=== PATIENT | male | born 1985 | race American Indian/Alaskan Native ===

== ENCOUNTER 2020-06-03 11:01 | Emergency (ER) | payer SELFPAY ==
[2020-06-03 11:14] VITALS: BP 124/60
== END 2020-06-03 14:01 ==
LOC: ED 11:01
DX: J02.9 Acute pharyngitis, unspecified (principal); Z53.21 Procedure and treatment not carried out due to patient leaving prior to being seen by health care provider

== ENCOUNTER 2021-05-09 08:12 | Emergency (ER) | payer SELFPAY ==
[2021-05-09] MEDS ORDERED: MORPHINE 4 MG/1 ML INJ IM ONE (08:51)
[2021-05-09] MEDS ORDERED: KETOROLAC 30 MG/1 ML INJ IM ONE (08:51)
[2021-05-09 09:06] LABS: Hemoglobin 13.3 gm/dl (11.8-15.2); Mean Corpuscular HGB Conc 33 % (32-34); Mean Corpuscular Volume 81 fl (84-94); Platelet Count 205 K/mm3 (140-440); Red Blood Count 5.07 M/mm3 (3.65-5.03); Red Cell Distribution Width 15.9 % (13.2-15.2)
[2021-05-09 09:28] LABS: Alanine Aminotransferase 23 units/L (7-56); Albumin 4.7 g/dL (3.9-5); BUN/Creatinine Ratio 13; Blood Urea Nitrogen 10 mg/dL (9-20); Calcium 9.5 mg/dL (8.4-10.2); Hemolysis Index 18
[2021-05-09 09:32] LABS: Bilirubin,Urine NEG (Negative); Blood,Urine SM (Negative); Color,Urine Straw (Yellow); Protein,Urine <15 mg/dL mg/dL (Negative); Urobilinogen,Urine < 2.0 mg/dL (<2.0)
[2021-05-09 09:57] VITALS: BP 104/74
--- NOTE | 2021-05-09 10:01 | Emergency Department Report ---
ED Male HPI - General Chief complaint: Abdominal Pain Stated complaint: SEVERE ABD/LOWER BACK PAIN Time Seen by Provider: 05/09/21 08:34 Source: patient Mode of arrival: Ambulatory Limitations: No Limitations - History of Present Illness Initial comments: 35-year-old -[place] male with a history of HIV presents to the emergency room complaining of severe left flank pain that travels to the left lower quadrant abdomen. Patient states this started about 6 PM last night and has gradually gotten worse. Patient states he thought it was gas late on the floor but is not able to cut get comfortable. He denies any nausea no vomiting no hematuria no diarrhea. States is compliant with his medications. It is undetectable. He denies any fever chills. -: Last night Location: left flank Radiation: throat Severity scale (0 -10): 10 Quality: sharp, stabbing Consistency: constant Improves with: none Worsens with: none denies other symptoms. denies: nausea/vomiting - Related Data Sexually active: Yes Previous Rx's Medication Instructions Recorded Last Taken Type Ibuprofen [Motrin 800 MG tab] 800 mg PO Q8HR PRN #30 tablet 05/09/21 Unknown Rx Allergies Allergy/AdvReac Type Severity Reaction Status Date / Time No Known Allergies Allergy Unverified 05/09/21 08:27 ED Review of Systems ROS: Stated complaint: SEVERE ABD/LOWER BACK PAIN Other details as noted in HPI Comment: All other systems reviewed and negative ED Past Medical Hx - Past Medical History Previous Medical History?: No - Surgical History Past Surgical History?: No Hx Appendectomy: Yes - Social History Smoking Status: Current Every Day Smoker Substance Use Type: None - Medications Home Medications: Home Medications Medication Instructions Recorded Confirmed Last Taken Type Ibuprofen [Motrin 800 MG tab] 800 mg PO Q8HR PRN #30 tablet 05/09/21 Unknown Rx ED Physical Exam - General Limitations: No Limitations General appearance: alert, in distress - Head Head exam: Present: atraumatic, normocephalic - Eye Eye exam: Present: normal appearance - ENT ENT exam: Present: mucous membranes moist - Neck Neck exam: Present: normal inspection - Respiratory Respiratory exam: Present: normal lung sounds bilaterally. Absent: respiratory distress - Cardiovascular Cardiovascular Exam: Present: regular rate - GI/Abdominal GI/Abdominal exam: Present: distended, tenderness, guarding, normal bowel sounds - Extremities Exam Extremities exam: Present: normal inspection, full ROM - Back Exam Back exam: Present: normal inspection - Neurological Exam Neurological exam: Present: alert, oriented X3 - Psychiatric Psychiatric exam: Present: normal affect, normal mood - Skin Skin exam: Present: warm, dry, intact, normal color. Absent: rash ED Course Vital Signs 05/09/21 08:27 Temperature 98.3 F Pulse Rate 84 Respiratory 18 Rate Blood Pressure 104/74 O2 Sat by Pulse 99 Oximetry ED Medical Decision Making - Lab Data Result diagrams: 05/09/21 08:54 05/09/21 08:54 - Medical Decision Making 35-year-old -[place] male with a history of HIV presents to the emergency room complaining of severe left flank pain that travels to the left lower quadrant abdomen. Patient states this started about 6 PM last night and has gradually gotten worse. Patient states he thought it was gas late on the floor but is not able to cut get comfortable. He denies any nausea no vomiting no hematuria no diarrhea. States is compliant with his medications. It is undetectable. He denies any fever chills. CBC CMP CT scan with out contrast urinalysis IV normal saline IV morphine IV Zofran. Critical care attestation.: If time is entered above; I have spent that time in minutes in the direct care of this critically ill patient, excluding procedure time. ED Disposition Clinical Impression: Acute left flank pain Disposition: 01 HOME / SELF CARE / HOMELESS Is pt being admited?: No Does the pt Need Aspirin: No Condition: Stable Instructions: Flank Pain, Adult, [id number] Additional Instructions: Radiology reads your CAT scan as normal. I recommend pain medication you can follow-up with a urologist and your primary care provider. Prescriptions: Ibuprofen [Motrin 800 MG tab] 800 mg PO Q8HR PRN #30 tablet PRN Reason: Pain , Severe (7-10) Referrals: PRIMARY CARE, [Primary Care Provider] - 3-5 Days EULA LIANG MD [Staff Physician] - 3-5 Days MIRELLA ROMERO MD [Staff Physician] - 3-5 Days Forms: Work/School Release Form(ED) Time of Disposition: 11:12
[2021-05-09 10:10] LABS: RBC,Urine < 1.0 /HPF (0.0-6.0); WBC,Urine < 1.0 /HPF (0.0-6.0)
--- NOTE | 2021-05-09 11:07 | Cat Scan Report ---
CT OF THE ABDOMEN AND PELVIS WITHOUT CONTRAST INDICATION / CLINICAL INFORMATION: Left flank pain. TECHNIQUE: All CT scans at this location are performed using CT dose reduction for ALARA by means of automated exposure control. COMPARISON: None available. FINDINGS: ABDOMEN: There is no evidence of renal calculus, hydronephrosis, perinephric soft tissue stranding or mass. The liver, spleen, gallbladder, bile ducts, pancreas and adrenal glands are normal. There is a moderate amount of stool in the right colon. I see no evidence of bowel obstruction, wall thickening or free air. No adenopathy is present. No vascular abnormality is seen. The lung bases are clear. PELVIS: The distal ureters, urinary bladder, prostate gland and seminal vesicles demonstrate no signi ficant abnormality. The appendix may have been removed. There is no evidence of diverticulitis. No ab normal mass or fluid collection is seen. I do not identify a hernia. No acute osseous abnormality is present. IMPRESSION: No acute abnormality is identified. Signer Name: Jayce Daniel MD Signed: 05/09/2021 10:58 AM Workstation Name: [id number]
== END 2021-05-09 11:24 | disposition home or self-care (01) ==
LOC: ED 08:12
DX: R10.32 Left lower quadrant pain (principal); F17.200 Nicotine dependence, unspecified, uncomplicated; Z90.49 Acquired absence of other specified parts of digestive tract; Z79.899 Other long term (current) drug therapy
CPT/HCPCS: 36415; 74176; 80053; 81001; 85027; 96372; 99284; J1885; J2270

== ENCOUNTER 2021-05-10 04:00 | Emergency (ER) | payer SELFPAY ==
[2021-05-10 05:21] LABS: Bilirubin,Urine NEG (Negative); Blood,Urine MOD (Negative); Color,Urine Yellow (Yellow); Protein,Urine <15 mg/dL mg/dL (Negative); Urobilinogen,Urine < 2.0 mg/dL (<2.0)
[2021-05-10 05:41] LABS: Basophils % (Auto) 0.6 % (0.0-1.8); Eosinophils % (Auto) 0.9 % (0.0-4.3); Hematocrit 39.9 % (35.5-45.6); Hemoglobin 12.9 gm/dl (11.8-15.2); Lymphocytes # (Auto) 1.7 K/mm3 (1.2-5.4); Lymphocytes % (Auto) 32.4 % (13.4-35.0); Mean Corpuscular HGB Conc 32 % (32-34); Mean Corpuscular Volume 82 fl (84-94); Monocytes # (Auto) 0.7 K/mm3 (0.0-0.8); Monocytes % (Auto) 13.5 % (0.0-7.3); Platelet Count 203 K/mm3 (140-440); Red Blood Count 4.88 M/mm3 (3.65-5.03); Red Cell Distribution Width 15.8 % (13.2-15.2)
[2021-05-10 05:57] LABS: Alanine Aminotransferase 21 units/L (7-56); Albumin 4.6 g/dL (3.9-5); BUN/Creatinine Ratio 14; Blood Urea Nitrogen 13 mg/dL (9-20); Calcium 9.6 mg/dL (8.4-10.2); Hemolysis Index 3
[2021-05-10] MEDS ORDERED: KETOROLAC 30 MG/1 ML INJ IM ONE (07:09)
[2021-05-10] MEDS ORDERED: HALOPERIDOL LACTATE 5 MG/1 ML INJ IM ONE (07:09)
--- NOTE | 2021-05-10 07:11 | Emergency Department Report ---
ED Abdominal Pain HPI - General Chief Complaint: Abdominal Pain Stated Complaint: BACK PAIN Time Seen by Provider: 05/10/21 06:01 Source: patient Mode of arrival: Ambulatory Limitations: No Limitations - History of Present Illness Initial Comments: Patient presents with abdominal pain. He actually started having abdominal pain and back pain about 2 days ago. He describes the pain in the abdomen as a bloating and distended feeling with pressure. He states that the back pain is aching and sharp. Initially, the pain was isolated to the left flank area. Now both sides of his back hurt in the mid back to lower back. He states that he was seen here yesterday. His symptoms really never abated. He came back today because he could not get comfortable. There is no recent trauma or travel. He has no recent vomiting or diarrhea. He denies dysuria or frequency. Patient has not noticed hematuria or penile discharge. He has never had symptoms like this before. He states that his work-up yesterday including blood work and CT. No diagnosis was made. Severity scale (0 -10): 3 - Related Data Previous Rx's Medication Instructions Recorded Last Taken Type Ibuprofen [Motrin 800 MG tab] 800 mg PO Q8HR PRN #30 tablet 05/09/21 Unknown Rx Dicyclomine [Bentyl] 20 mg PO QID PRN #30 tablet 05/10/21 Unknown Rx Ondansetron [Zofran ODT TAB] 8 mg PO Q8HR PRN #20 tab.rapdis 05/10/21 Unknown Rx Sucralfate [Carafate] 1 gm PO ACHS #120 tablet 05/10/21 Unknown Rx Allergies Allergy/AdvReac Type Severity Reaction Status Date / Time No Known Allergies Allergy Unverified 05/09/21 08:27 ED Review of Systems ROS: Stated complaint: BACK PAIN Other details as noted in HPI Comment: All other systems reviewed and negative Constitutional: denies: fever Eyes: denies: eye pain ENT: denies: throat pain Respiratory: denies: cough Cardiovascular: denies: chest pain Endocrine: denies: unexplained weight loss Gastrointestinal: as per HPI Genitourinary: denies: dysuria Musculoskeletal: as per HPI Skin: denies: rash Neurological: denies: headache Hematological/Lymphatic: denies: easy bruising ED Past Medical Hx - Past Medical History Hx HIV: Yes - Surgical History Past Surgical History?: Yes Hx Appendectomy: Yes - Family History Family history: no significant - Social History Smoking Status: Current Every Day Smoker Substance Use Type: None - Medications Home Medications: Home Medications Medication Instructions Recorded Confirmed Last Taken Type Ibuprofen [Motrin 800 MG tab] 800 mg PO Q8HR PRN #30 tablet 05/09/21 Unknown Rx Dicyclomine [Bentyl] 20 mg PO QID PRN #30 tablet 05/10/21 Unknown Rx Ondansetron [Zofran ODT TAB] 8 mg PO Q8HR PRN #20 tab.rapdis 05/10/21 Unknown Rx Sucralfate [Carafate] 1 gm PO ACHS #120 tablet 05/10/21 Unknown Rx ED Physical Exam - General Limitations: No Limitations, Other (Pulse ox noted and normal) General appearance: alert, in no apparent distress, other (Uncomfortable) - Head Head exam: Present: atraumatic, normocephalic - Eye Eye exam: Present: normal appearance, PERRL, EOMI - ENT ENT exam: Present: normal external ear exam - Neck Neck exam: Present: normal inspection. Absent: meningismus - Respiratory Respiratory exam: Present: normal lung sounds bilaterally. Absent: respiratory distress - Cardiovascular Cardiovascular Exam: Present: regular rate, normal rhythm - GI/Abdominal GI/Abdominal exam: Present: soft, tenderness (Diffuse). Absent: guarding, rebou nd - Extremities Exam Extremities exam: Present: normal capillary refill - Back Exam Back exam: Present: paraspinal tenderness (Bilateral lower thoracic and upper lumbar) - Neurological Exam Neurological exam: Present: alert, oriented X3, CN II-XII intact, normal gait - Psychiatric Psychiatric exam: Present: normal affect, normal mood - Skin Skin exam: Present: warm, dry ED Course Vital Signs 05/10/21 05/10/21 04:21 07:53 Temperature 98.5 F Pulse Rate 66 Respiratory 17 20 Rate Blood Pressure 129/66 [Right] O2 Sat by Pulse 100 Oximetry - Reevaluation(s) Reevaluation #1: 05/10/21 07:11 Medications were ordered. Old records reviewed. Reevaluation #2: 05/10/21 08:22 Labs are noted. Patient was discharged. ED Medical Decision Making - Lab Data Result diagrams: 05/10/21 05:07 05/10/21 05:07 - Medical Decision Making Patient presented with ongoing abdominal pain. This includes back pain. Etiology for this is not known. His work-up was extensive yesterday including labs and CT. None of these provided any answer for his symptoms. Laboratory evaluation today is essentially unchanged. Patient has no peritoneal finding. He has been treated symptomatically and referred to GI for follow-up. I do not believe he would benefit from repeat CT. He does not have peritoneal findings at this time. He does not have postprandial symptoms suggestive of ischemic pathology. He has no risk factor for ischemic pathology. Critical Care Time: No Critical care attestation.: If time is entered above; I have spent that time in minutes in the direct care of this critically ill patient, excluding procedure time. ED Disposition Clinical Impression: Generalized abdominal pain Lower back pain Qualifiers: Chronicity: acute Back pain laterality: bilateral Sciatica presence: without sciatica Qualified Code(s): M54.50 - Low back pain, unspecified Disposition: 01 HOME / SELF CARE / HOMELESS Is pt being admited?: No Condition: Stable Instructions: Abdominal Pain, Adult, [id number], Flank Pain, Adult, [id number], Pain Without a Known Cause Additional Instructions: Drink plenty water. Have a bland diet. Follow-up with GI as referred. Return for problems or concerns. Continue home medication. Prescriptions: Dicyclomine [Bentyl] 20 mg PO QID PRN #30 tablet PRN Reason: abd pain Sucralfate [Carafate] 1 gm PO ACHS #120 tablet Ondansetron [Zofran ODT TAB] 8 mg PO Q8HR PRN #20 tab.rapdis PRN Reason: Nausea Referrals: PRIMARY CARE, [Primary Care Provider] - 3-5 Days AC GARVEY MD [Staff Physician] - 3-5 Days VIKASH FORBES MD [Staff Physician] - 3-5 Days
[2021-05-10] MEDS ORDERED: DICYCLOMINE 20 MG/2 ML INJ IM ONE (08:19)
[2021-05-10 08:34] VITALS: BP 128/65
== END 2021-05-10 08:35 | disposition home or self-care (01) ==
LOC: ED 04:00
DX: R10.84 Generalized abdominal pain (principal); M54.50 Low back pain, unspecified; F17.200 Nicotine dependence, unspecified, uncomplicated; Z21 Asymptomatic human immunodeficiency virus [HIV] infection status; Z90.49 Acquired absence of other specified parts of digestive tract
CPT/HCPCS: 36415; 80053; 81001; 83690; 85025; 96372; 99283; J0500; J1630; J1885